=== PATIENT | male | born 1950 | race Caucasian/White ===

== ENCOUNTER 2016-05-14 11:50 | Observation (INO) | payer OTHER ==
[~2016-05-14] VITALS: Ht 180.3 cm; Wt 95.3 kg
[~2016-05-14 11:50] MED LIST: ASPIR-LOW81 MG PO; ATORVASTATIN CA80 MG PO; BRILINTA90 MG PO; I VITE PO; LISINOPRIL5 MG PO; LO-DOSE ASPIRIN81 M1 PO; LOPRESSOR25 MG PO; MICARDIS HCT1 TABLE2 PO; NITROSTAT0.4 MG SL; OMEGA 3 500 SO1 EACH PO; [UNRECOGNIZED DRUG - OTHER] PO; [UNRECOGNIZED DRUG - OTHER] PO
[2016-05-14 14:33] LABS: EOSINOPHIL (%) 2.7 % (0-5); EOSINOPHIL COUNT 0.2 K/uL (0-0.3); HEMATOCRIT 42.4 % (38.0-50.0); IMMATURE GRANULOCYTE (%) 0.2 % (0.0-0.7); IMMATURE GRANULOCYTE COUNT 0.1 K/uL; LYMPHOCYTE COUNT 1.5 K/uL (1.0-2.8); MCH 31.3 PG (29.0-34.0); MCHC 34.9 G/DL (30.0-36.0); MCV 89.6 FL (86-99); MEAN PLAT.VOLUME 10.3 uM^3 (9.0-12.4); MONOCYTE (%) 8.8 % (3-12); MONOCYTE COUNT 0.5 K/uL (0-0.8); NEUTROPHIL (%) 61.8 % (45-76); NEUTROPHIL COUNT 3.5 K/uL (1.8-6.4); PLATELET COUNT 145 K/uL (156-360); RBC DIS.WIDTH-CV 13.2 % (11.8-14.6); RBC DIS.WIDTH-SD 42.6 % (39-53); RED BLOOD COUNT 4.73 M/uL (4.00-5.50); WHITE BLOOD COUNT 5.7 K/uL (4.1-10.2)
[2016-05-14 14:44] LABS: CHLORIDE 107 mEq/L (99-109); POTASSIUM 4.5 mEq/L (3.7-5.4); SODIUM 141 mEq/L (136-147)
[2016-05-14 14:45] LABS: MAGNESIUM 2.7 mg/dL (1.3-2.7)
[2016-05-14 14:47] LABS: GLUCOSE 112 mg/dL (70-99)
[2016-05-14 14:48] LABS: ANION GAP 11 MEQ/L (2-14)
[2016-05-14 14:49] LABS: TOTAL BILIRUBIN 1.2 mg/dL (0.0-1.0)
[2016-05-14 14:50] LABS: ALKALINE PHOSPHATASE 105 IU/L (3-129)
[2016-05-14 14:51] LABS: GFR ESTIMATE (CALCULATED) > 59 mL/min/
[2016-05-14 14:52] LABS: UREA NITROGEN (BUN) 11 mg/dL (9-23)
[2016-05-14 14:55] LABS: TROP-I INTERPRETATION NEGATIVE; TROPONIN-I 0.01 ng/mL (0.0-0.30)
[2016-05-14] MEDS ORDERED: AVAPRO150 MG PO (15:21)
[2016-05-14] MEDS ORDERED: CO Q-10200 MG PO (15:22)
[2016-05-14] MEDS ORDERED: [UNRECOGNIZED DRUG - OTHER] PO (15:26)
[2016-05-14 17:54] LABS: ADD MIUA? NO; BILIRUBIN NEGATIVE; BLOOD NEGATIVE; COLOR YELLOW ((YELLOW)); GLUCOSE (STRIP) NEGATIVE; KETONES NEGATIVE; LEUKOCYTES NEGATIVE; NITRITE NEGATIVE; PH, URINE 7.5 (5-8); PROTEIN (STRIP) NEGATIVE; UCUL ADDED? NO; UROBILINOGEN 0.2 MG/DL (0.2-1.0)
[2016-05-14 18:09] VITALS: BP 161/86
[2016-05-14 20:19] VITALS: BP 177/83
[2016-05-14 23:36] VITALS: BP 148/80
[2016-05-15 00:52] LABS: TROP-I INTERPRETATION NEGATIVE; TROPONIN-I 0.01 ng/mL (0.0-0.30)
[2016-05-15 04:54] VITALS: BP 143/84
[2016-05-15 07:34] LABS: TROP-I INTERPRETATION NEGATIVE; TROPONIN-I < 0.01 ng/mL (0.0-0.30)
[2016-05-15 08:00] VITALS: BP 150/81
== END 2016-05-15 10:36 | disposition home or self-care (01) ==
LOC: EME 11:50 → EDOF 16:02 → 5WEST 16:02
PROVIDERS: Internal Medicine; Physician Assistant
DX: R07.9 Chest pain, unspecified (principal); I25.2 Old myocardial infarction; I10 Essential (primary) hypertension; I25.10 Atherosclerotic heart disease of native coronary artery without angina pectoris; Z98.61 Coronary angioplasty status; E78.5 Hyperlipidemia, unspecified; Z87.891 Personal history of nicotine dependence; Z82.49 Family history of ischemic heart disease and other diseases of the circulatory system; Z79.82 Long term (current) use of aspirin; Z79.02 Long term (current) use of antithrombotics/antiplatelets
CPT/HCPCS: 71020; 80053; 81003; 83735; 83880; 84484; 85025; 93005; 99281; 99285; G0378